=== PATIENT | female | born 1960 | race Caucasian/White ===

== ENCOUNTER 2016-03-08 09:23 | Emergency (ER) | payer MEDICAID ==
[2016-03-08 09:31] VITALS: TEMP 97.9; BMI 32.5
[2016-03-08] MEDS ORDERED: SODIUM CHLORIDE 0.9% 10 ML FLUSH FLUSH PRN (09:58)
[2016-03-08 10:25] LABS: ABG Draw Site Right Radial; ALLEN'S TEST PASS; BEb 0.1 (+/- 2); TCO2 25.9 MMOL/L (23-27)
[2016-03-08 10:28] LABS: AUTOMATED BASOPHIL 1.5 % (0-2); AUTOMATED EOSINOPHIL 2.6 % (0-5); AUTOMATED MONOCYTE 7.5 % (3-10); AUTOMATED NEUTROPHIL 63.4 % (45-76); MPV 8.4 fL (7.4-10.4)
[2016-03-08 10:40] LABS: PARTIAL THROMB. TIME 27.1 SEC (22-35); PT-INR 1.1
[2016-03-08 10:41] LABS: BLOOD UREA NITROGEN 16 MG/DL (7-17); CALCIUM 9.7 MG/DL (8.4-10.2); CALCULATED OSMOLALITY 275 MOs/Kg (270-290); CHLORIDE 99 mEq/L (98-107); GLUCOSE 357 MG/DL (70-99); SODIUM LEVEL 135 mEq/L (137-146); TOTAL PROTEIN 7.7 G/DL (6.3-8.2)
--- NOTE | 2016-03-08 11:00 | DIRPT ---
CLINICAL DATA: Productive cough. Nausea, chest pain for 2 weeks EXAM: CHEST 2 VIEW COMPARISON: 03/08/2015 FINDINGS: There is a tracheostomy tube in satisfactory position. There is no focal parenchymal opacity. There is no pleural effusion or pneumothorax. The heart and mediastinal contours are unremarkable. The osseous structures are unremarkable. IMPRESSION: No active cardiopulmonary disease. Electronically Signed By: Rosa Jenkins On: 03/08/2016 10:57
--- NOTE | 2016-03-08 11:06 | EDPRACDOC ---
- General Information Chief Complaint: Flu-Like Symptoms Stated Complaint: COUGH/CONGESTION/SHOB Time Seen by Provider: 03/08/16 09:46 Information Source: Patient Mode Of Arrival: Car Home Medications: Home Medications Levothyroxine Sodium [Synthroid] 137 mcg PO DAILY 07/12/14 Zolpidem Tartrate [Ambien] 10 mg PO HS PRN 07/12/14 Citalopram (anti-depressant) [Celexa] 20 mg PO BID 03/07/15 Omeprazole 40 mg PO DAILY 03/07/15 Albuterol Sulfate [Proair Hfa] 2 puff INH Q4-6H PRN 11/14/15 Amlodipine [Norvasc] 5 mg PO DAILY 11/14/15 Budesonide [Pulmicort] 0.25 mg NEB Q12H 11/14/15 Fluconazole [Diflucan] 150 mg PO .ONCE 11/14/15 Glimepiride [Amaryl] 1 mg PO QAM 11/14/15 Lubiprostone [Amitiza] 24 mcg PO BID 11/14/15 Magnesium 500 mg PO BID 11/14/15 Metformin HCl [Metformin HCl ER] 1,000 mg PO QHS 11/14/15 Ondansetron HCl [Zofran] 4 mg PO Q8H PRN 11/14/15 Oxycodone HCl [Oxycodone Immediate Release] 15 mg PO QID 11/14/15 Oxycodone HCl [Oxycodone Immediate Release] 15 mg PO QID #30 tab 11/14/15 Oxymorphone HCl [Opana ER] 15 mg PO BID 11/14/15 Polyethylene Glycol 3350 [Miralax] 17 gm PO DAILY PRN 11/14/15 Pravastatin [Pravachol] 20 mg PO HS 11/14/15 Sulfamethoxazole/Trimethoprim [Bactrim Ds Tablet] 1 tab PO BID 11/14/15 Acetaminophen with Codeine [TYLENOL WITH CODEINE; [employer] with Codeine] 5 ml PO Q4-6H PRN #120 ml 03/08/16 Benzonatate [Tessalon] 100 mg PO TID #20 per 03/08/16 Allergies/Adverse Reactions: Allergies Allergy/AdvReac Type Severity Reaction Status Date / Time latex Allergy Unknown Rash-Genera Verified 11/14/15 10:26 lized Penicillins Allergy Unknown RASH Verified 11/14/15 10:26 sertraline [From Zoloft] Allergy Rash-Genera Verified 11/14/15 10:26 lized - History of Present Illness Symptoms Started: 4 WEEKS HPI: PT PRESENTS TODAY WITH COUGH/CONGESTION, SUBJECTIVE FEVERS, CHEST WALL PAIN X 4 WEEKS. PT STATES THAT INITIALLY SHE CALLED PCP AND HAD [facility] CALLED IN (PT DID NOT ACTUALLY SEE HER PCP). STATES SHE COMPLETED THIS TREATMENT W/OUT RELIEF. PT STATES PCP CALLED [facility] IN 2 DAYS AGO, W/OUT RELIEF. PT ALSO CONCERNED ABOUT HER BLOOD SUGARS BEING HIGH AT HOME. Symptoms: Reports: Cough, Fever, Nasal Symptoms, Myalgia Recent Medications: Reports: Antibiotics Relevant History Of: Reports: None Shortness of Breath: Moderate Cough Frequency: Persistent Cough Description: Reports: Strong, Congested Ear Symptoms: Reports: None Associated Signs and Symptoms: Reports: Cough, Fever, Nasal Symptoms ED Past Medical History - History Reviewed Yes Nurses notes reviewed and agree except as marked - Patient Medical History Cardiac History: Reports: Hypertension Respiratory History: Reports: Asthma GI/ History: Reports: Renal Failure (Stage 3 within last 3 mo 01/2015) Musculoskeletal History: Reports: Arthritis Psychological History: Reports: Anxiety. Denies: Depression, Substance Use Disorder Systemic History: Reports: Diabetes, Hypothyroidism Surgical History: Reports: Other (TRACH). Denies: Tonsillectomy/Adnoidectomy - Family Medical History Reports: Hypertension (Mother), Diabetes (Mother), Stroke (Mother), Cardiac Disorders (Father,Brother) - Social Medical History Smoking Status: Never smoker Social History: Denies: Substance Use Disorder EDM Review of Systems - Review of Systems ROS Negative Except as Marked: Yes All systems reviewed and were negative except as marked Constitutional: Chills, Fever, Fatigue Eyes: No Symptoms Reported Ears: No Symptoms Reported Throat: Pain Nose: Congestion Respiratory: Cough, Shortness of Breath Cardiovascular: No Symptoms Reported Gastrointestinal: No Symptoms Reported Genitourinary: No Symptoms Reported Neurological: No Symptoms Reported Musculoskeletal: No Symptoms Reported Integumentary: No Symptoms Reported - Physical Exam Constitutional: Alert (Awake), No apparent distress Oriented to: Time, Person, Place Last recorded Vital Signs: Last Vital Signs Temp 97.9 F 03/08/16 09:26 Pulse 90 03/08/16 09:26 Resp 18 03/08/16 09:41 BP 172/125 H 03/08/16 09:26 Pulse Ox 94 03/08/16 09:26 Oxygen Pulse Oxygen Saturation 94 O2 Device Room Air Oxygen Flow Rate Fraction of Inspired Oxygen ( FIO2) - HEENT Head: Normal Eye Exam: Normal Oropharynx: Normal Tympanic Membrane: Normal ENT EAC: Normal Nose: No Symptoms Reported Neck: Normal, Other (NOTED TRACH D/T PMH OF TRACHEAL STENOSIS) - Respiratory/Cardiovascular Respiratory: Normal - CTA Cardiovascular: Normal - GI Palpation: Normal Tenderness: Non tender - Musculoskeletal Back: Normal Extremities: Normal - Integumentary Skin: Normal Lymphatics: Normal - Neurologic Cerebellar: Normal Mood Description: Normal Thought: Coherent Perception: Normal - Results 03/08/16 10:15 03/08/16 10:15 WBC 8.7 xk/uL (3.8-10.8) 03/08/16 10:15 RBC 4.90 xM/uL (4.20-5.40) 03/08/16 10:15 Hgb 14.4 g/dL (12.0-16.0) 03/08/16 10:15 Hct 42.8 % (36-47) 03/08/16 10:15 MCV 87 fL (81-99) 03/08/16 10:15 MCH 29.4 pg (27-32) 03/08/16 10:15 MCHC 33.7 g/dl (33-36) 03/08/16 10:15 RDW 14.4 % (11.5-14.5) 03/08/16 10:15 Plt Count 245 xk/uL (130-400) 03/08/16 10:15 MPV 8.4 fL (7.4-10.4) 03/08/16 10:15 Neut % (Auto) 63.4 % (45-76) 03/08/16 10:15 Lymph % (Auto) 25.0 % (17-44) 03/08/16 10:15 [place] % (Auto) 7.5 % (3-10) 03/08/16 10:15 Eos % (Auto) 2.6 % (0-5) 03/08/16 10:15 Baso % (Auto) 1.5 % (0-2) 03/08/16 10:15 Absolute Neuts (auto) 5.48 xk/uL (1.7-8.2) 03/08/16 10:15 Absolute Lymphs (auto) 2.18 xk/uL (0.65-4.75) 03/08/16 10:15 PT 10.8 SEC (9.2-11.2) 03/08/16 10:15 INR 1.1 03/08/16 10:15 APTT 27.1 SEC (22-35) 03/08/16 10:15 D-Dimer Quant (PE/DVT) 256 ng/mL (<500) 03/08/16 10:15 Puncture Site Right radial 03/08/16 10:20 pH 7.410 pH UNITS (7.35-7.45) 03/08/16 10:20 pCO2 39.0 mmHg (35-45) 03/08/16 10:20 pO2 79.0 mmHg (80-100) L 03/08/16 10:20 HCO3 24.7 MMOL/L (22-26) 03/08/16 10:20 Total CO2 25.9 MMOL/L (23-27) 03/08/16 10:20 Base Excess 0.1 (+/- 2) 03/08/16 10:20 FiO2 % 0.21 03/08/16 10:20 Specimen Drawn By Noah 03/08/16 10:20 Lab Results 03/08/16 03/08/16 03/08/16 10:20 10:15 10:15 WBC RBC Hgb Hct MCV MCH MCHC RDW Plt Count MPV Neut % (Auto) Lymph % (Auto) [place] % (Auto) Eos % (Auto) Baso % (Auto) Absolute Neuts (auto) Absolute Lymphs (auto) PT 10.8 INR 1.1 APTT 27.1 D-Dimer Quant (PE/DVT) 256 Puncture Site Right radial pH 7.410 pCO2 39.0 pO2 79.0 L HCO3 24.7 Total CO2 25.9 Base Excess 0.1 FiO2 % 0.21 Specimen Drawn By Noah 03/08/16 10:15 WBC 8.7 RBC 4.90 Hgb 14.4 Hct 42.8 MCV 87 MCH 29.4 MCHC 33.7 RDW 14.4 Plt Count 245 MPV 8.4 Neut % (Auto) 63.4 Lymph % (Auto) 25.0 [place] % (Auto) 7.5 Eos % (Auto) 2.6 Baso % (Auto) 1.5 Absolute Neuts (auto) 5.48 Absolute Lymphs (auto) 2.18 PT INR APTT D-Dimer Quant (PE/DVT) Puncture Site pH pCO2 pO2 HCO3 Total CO2 Base Excess FiO2 % Specimen Drawn By - EKG EKG #1 EKG Time: 10:09 -: Yes EKG interpreted by me Rate: bpm: 83 [place]: Normal Rhythm: NSR Block: None Hypertrophy: None ST: Normal Decision Time to Discharge: 11:53 - Departure Disposition: Home Condition: Good Final Diagnosis: Cough Instructions: Chronic Cough (ED) Education/Counseling Given To: Patient Education/Counseling Given Regarding: Diagnosis, Treatment, Follow Up Referrals: Carly Weir PA [Primary Care Provider] - One Week Prescriptions: Acetaminophen with Codeine [TYLENOL WITH CODEINE; [employer] with Codeine] 5 ml PO Q4-6H PRN #120 ml PRN Reason: Pain Benzonatate [Tessalon] 100 mg PO TID #20 per Additional Instructions: REST AND PLENTY OF FLUIDS. FOLLOW UP WITH PCP REGARDING HIGH BLOOD SUGARS AND MEDICATION ADJUSTMENTS.
[2016-03-08 12:08] VITALS: BP 138/73; PULSE 74
== END 2016-03-08 12:07 | disposition home or self-care (01) ==
LOC: ED 09:23
DX: R05 Cough (principal); I10 Essential (primary) hypertension; E11.9 Type 2 diabetes mellitus without complications; J45.909 Unspecified asthma, uncomplicated; F41.9 Anxiety disorder, unspecified; E03.9 Hypothyroidism, unspecified; Z93.0 Tracheostomy status; Z79.899 Other long term (current) drug therapy
CPT/HCPCS: 36415; 36600; 71020; 80053; 82803; 83690; 84484; 85025; 85379; 85610; 85730; 93005; 99284